=== PATIENT | female | born 1985 | race Caucasian/White ===

== ENCOUNTER 2017-09-02 09:03 | Emergency (ER) | payer OTHER | END 2017-09-02 09:27 | disposition home or self-care (01) | LOC: SCSER 09:03 | DX: J06.9 Acute upper respiratory infection, unspecified (principal); F17.210 Nicotine dependence, cigarettes, uncomplicated | CPT/HCPCS: 99283 ==

== ENCOUNTER 2018-07-23 11:46 | Emergency (ER) | payer OTHER | END 2018-07-23 16:52 | disposition home or self-care (01) | LOC: SCSER 11:46 | DX: Z53.21 Procedure and treatment not carried out due to patient leaving prior to being seen by health care provider (principal) ==

== ENCOUNTER 2018-07-23 15:44 | Emergency (ER) | payer OTHER | END 2018-07-23 16:49 | disposition home or self-care (01) | LOC: SCSER 15:44 | DX: Z02.89 Encounter for other administrative examinations (principal); F17.210 Nicotine dependence, cigarettes, uncomplicated | CPT/HCPCS: 99282 ==

== ENCOUNTER 2018-12-23 13:22 | Emergency (ER) | payer OTHER | END 2018-12-23 15:55 | disposition home or self-care (01) | LOC: SCSER 13:22 | DX: J10.1 Influenza due to other identified influenza virus with other respiratory manifestations (principal); F17.210 Nicotine dependence, cigarettes, uncomplicated | CPT/HCPCS: 87804; 99283 ==

== ENCOUNTER 2019-02-28 16:43 | Emergency (ER) | payer OTHER ==
[2019-02-28] MEDS ORDERED: Adacel (T-DAP) 0.5 ML SYRINGE ONE ×2 (17:10→17:15)
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
== END 2019-02-28 18:03 | disposition home or self-care (01) ==
LOC: ERS 16:43 → EEVIPCON 16:43 → ERS 18:03
DX: S16.1XXA Strain of muscle, fascia and tendon at neck level, initial encounter (principal); S00.03XA Contusion of scalp, initial encounter; F17.210 Nicotine dependence, cigarettes, uncomplicated; Y04.0XXA Assault by unarmed brawl or fight, initial encounter
CPT/HCPCS: 70450; 72125; 90715

== ENCOUNTER 2019-07-13 13:49 | Emergency (ER) | payer OTHER ==
[2019-07-13] MEDS ORDERED: Fluorescein Opthalmic Strip ONE (15:06)
== END 2019-07-13 15:35 | disposition home or self-care (01) ==
LOC: SCSER 13:49
DX: H10.9 Unspecified conjunctivitis (principal); F17.210 Nicotine dependence, cigarettes, uncomplicated
CPT/HCPCS: 99283

== ENCOUNTER 2021-09-26 21:34 | Emergency (ER) | payer OTHER ==
[2021-09-26] MEDS ORDERED: Ondansetron PF 4 MG/2 ML Vial ONE (21:50)
[2021-09-26] MEDS ORDERED: Haloperidol Lactate 5 MG/ML VIAL ONE (22:08)
[2021-09-26 22:09] LABS: #Lymphocytes 0.7 thou/uL (1.20-3.40); #Monocytes 0.4 thou/uL (0.11-0.59); #Neutrophils 12.9 thou/uL (1.40-6.50); %Basophils 0.1 % (0.0-1.0); %Eosinophils 0.1 % (0.0-10.0); %Lymphocytes 4.6 % (21.0-51.0); %Neutrophils 92.2 % (42.0-75.0); Mean Corpuscular HGB CONC 34.4 g/dL (32.0-36.0); Mean Corpuscular Hemoglobin 33.3 pg (27.0-31.0); Mean Corpuscular Volume 96.7 fL (78.0-98.0); Mean Platelet Volume 7.9 fL (7.4-10.4); Platelet Count 224 thou/uL (130-400); RBC Distribution Width 12.2 % (11.5-14.5)
[2021-09-26 22:17] LABS: BHCG - Serum Negative (NEGATIVE); Pregs Control Background? CLEAR/WHITE (CLR/WHITE); Pregs Control Bar Appear? YES (CONTROL BAR)
[2021-09-26 22:30] LABS: ALT (SGPT) 14 U/L (8-55); AST (SGOT) 19 U/L (5-34); Albumin 4.6 g/dL (3.5-5.0); Alkaline Phosphatase 51 U/L (40-110); Anion Gap 19 mmol/L (10-20); BUN (Urea Nitrogen) 14 mg/dL (7.0-18.7); Bilirubin, Total 0.9 mg/dL (0.2-1.2); Calc. Creatinine Clearance 0 mL/min (70-130); Calcium 9.8 mg/dL (7.8-10.44); Carbon Dioxide 23 mmol/L (22-29); Chloride 100 mmol/L (98-107); Globulin 3.2 g/dL (2.4-3.5); Glucose 156 mg/dL (70-105); Lipase 12 U/L (8-78); Potassium 3.7 mmol/L (3.5-5.1); Protein, Total 7.8 g/dL (6.0-8.3); Sodium 138 mmol/L (136-145)
== END 2021-09-26 23:15 | disposition home or self-care (01) ==
LOC: ERS 21:34
DX: R11.15 Cyclical vomiting syndrome unrelated to migraine (principal); F17.210 Nicotine dependence, cigarettes, uncomplicated; Z79.899 Other long term (current) drug therapy
CPT/HCPCS: 80053; 83690; 84703; 85025; 96374; 96375; J1630; J2405

== ENCOUNTER 2023-05-08 11:49 | Inpatient (IN) | payer OTHER ==
[2023-05-08] MEDS ORDERED: Morphine 4 MG/ML VIAL ONE (12:02)
[2023-05-08 12:19] LABS: #Basophils 0.1 thou/uL (0.0-0.2); #Eosinphils 0.2 thou/uL (0.0-0.7); #Monocytes 0.5 thou/uL (0.11-0.59); #Neutrophils 5.3 thou/uL (1.40-6.50); %Basophils 0.9 % (0.0-1.0); %Eosinophils 2.2 % (0.0-10.0); %Lymphocytes 30.8 % (21.0-51.0); %Monocytes 5.8 % (0.0-10.0); Hemoglobin 14.3 g/dL (12.0-16.0); Mean Corpuscular HGB CONC 34.6 g/dL (32.0-36.0); Mean Corpuscular Hemoglobin 32.4 pg (27.0-31.0); Mean Corpuscular Volume 93.4 fl (78.0-98.0); Mean Platelet Volume 10.3 fL (7.4-10.4); Platelet Count 238 10x3/uL (130-400); RBC Distribution Width 12.6 % (11.5-14.5); Red Blood Cell (RBC) Count 4.42 mill/uL (4.20-5.40); White Blood Cell (WBC) Count 8.9 10x3/uL (4.8-10.8)
[2023-05-08 12:36] LABS: BHCG - Serum Negative (NEGATIVE); Pregs Control Background? CLEAR/WHITE (CLR/WHITE); Pregs Control Bar Appear? YES (CONTROL BAR)
[2023-05-08 12:40] LABS: ALT (SGPT) 7 U/L (8-55); AST (SGOT) 14 U/L (5-34); Albumin 4.1 g/dL (3.5-5.0); Alkaline Phosphatase 48 U/L (40-110); Anion Gap 12 mmol/L (10-20); BUN (Urea Nitrogen) 7 mg/dL (7.0-18.7); Bilirubin, Total 0.4 mg/dL (0.2-1.2); Calc. Creatinine Clearance 0 mL/min (70-130); Carbon Dioxide 25 mmol/L (22-29); Chloride 107 mmol/L (98-107); Estimated GFR 99; Globulin 2.4 g/dL (2.4-3.5); Glucose 101 mg/dL (70-105); Lipase 22 U/L (8-78); Potassium 3.8 mmol/L (3.5-5.1); Protein, Total 6.5 g/dL (6.0-8.3); Sodium 140 mmol/L (136-145)
[2023-05-08] MEDS ORDERED: CEFAZOLIN 2 GM VIAL ONE (13:09)
[2023-05-08] MEDS ORDERED: Ondansetron PF 4 MG/2 ML Vial ONE (13:20)
[2023-05-08] MEDS ORDERED: Ketorolac Tromethamine 30 MG/ML VIAL ONE (13:38)
[2023-05-08] MEDS ORDERED: Glucagon 1 MG/ML KIT IM PRN (15:31)
[2023-05-08] MEDS ORDERED: Dextrose 50% Abboject 50 ML SYRINGE SLOW IVP PRN (15:31)
[2023-05-08] MEDS ORDERED: Morphine 2 MG/ML VIAL SLOW IVP PRN (15:31)
[2023-05-08] MEDS ORDERED: Morphine 4 MG/ML VIAL SLOW IVP PRN (15:31)
[2023-05-08] MEDS ORDERED: TETANUS, DIPHTHERIA TOX,ADULT (TDVAX) 0.5 ML VIAL IM ONE (15:31)
[2023-05-08] MEDS ORDERED: Ondansetron ODT 4 MG TAB PO PRN (15:31)
[2023-05-08] MEDS ORDERED: Dextrose 5% in Water 1,000 ML IV PRN (15:31)
[2023-05-08] MEDS ORDERED: Ipratropium/Albuterol 3 ML NEB NEB PRN (15:31)
[2023-05-08] MEDS ORDERED: Ondansetron PF 4 MG/2 ML Vial IVP PRN (15:31)
[2023-05-08] MEDS ORDERED: Promethazine HCl 25 MG/ML VIAL IM PRN (15:31)
[2023-05-08] MEDS ORDERED: traMADol HCl 50 MG TAB PO PRN (15:34)
[2023-05-08 16:32] VITALS: BMI 19.8
[2023-05-08] MEDS: Ketorolac Tromethamine 30 MG/ML VIAL IVP SCH (17:59)
[2023-05-08] MEDS ORDERED: Nicotine 21 MG PATCH TD SCH (18:00)
[2023-05-08] MEDS: Acetaminophen 500 MG TAB PO SCH ×2 (18:04→22:09)
[2023-05-08] MEDS: traMADol HCl 50 MG TAB PO SCH ×2 (18:05→22:10)
[2023-05-08] MEDS ORDERED: TETANUS AND DIPHTHERIA TOX/PF 0.5 ML DISP.SYRIN IM SCH (18:30)
[2023-05-08] MEDS: Famotidine 20 MG TAB PO SCH (22:08)
[2023-05-08] MEDS: CEFAZOLIN 2 GM in Sodium Chloride 0.9% 100 ML IVPB SCH (22:10)
[2023-05-08] MEDS: Cyclobenzaprine 10 MG TAB PO PRN (22:11)
[2023-05-08] MEDS ORDERED: Sodium Chloride 0.9% 1,000 ML IV SCH (23:55)
[2023-05-09] MEDS: Ketorolac Tromethamine 30 MG/ML VIAL IVP SCH ×5 (00:27→23:06)
[2023-05-09 05:30] LABS: #Basophils 0.1 thou/uL (0.0-0.2); #Eosinphils 0.1 thou/uL (0.0-0.7); #Monocytes 0.6 thou/uL (0.11-0.59); #Neutrophils 3.8 thou/uL (1.40-6.50); %Basophils 0.7 % (0.0-1.0); %Eosinophils 1.3 % (0.0-10.0); %Lymphocytes 32.1 % (21.0-51.0); %Monocytes 8.8 % (0.0-10.0); %Neutrophils 56.8 % (42.0-75.0); Hemoglobin 11.5 g/dL (12.0-16.0); Mean Corpuscular HGB CONC 34.7 g/dL (32.0-36.0); Mean Corpuscular Volume 95.1 fl (78.0-98.0); Mean Platelet Volume 10.4 fL (7.4-10.4); Platelet Count 173 10x3/uL (130-400); RBC Distribution Width 12.8 % (11.5-14.5); Red Blood Cell (RBC) Count 3.48 mill/uL (4.20-5.40); White Blood Cell (WBC) Count 6.7 10x3/uL (4.8-10.8)
[2023-05-09] MEDS: traMADol HCl 50 MG TAB PO SCH ×4 (05:43→21:43)
[2023-05-09] MEDS: Acetaminophen 500 MG TAB PO SCH ×4 (05:43→21:43)
[2023-05-09] MEDS: CEFAZOLIN 2 GM in Sodium Chloride 0.9% 100 ML IVPB SCH ×3 (05:45→20:20)
[2023-05-09 05:56] LABS: BUN (Urea Nitrogen) 8 mg/dL (7.0-18.7); Calc. Creatinine Clearance 84 mL/min (70-130); Calcium 8.1 mg/dL (7.8-10.44); Carbon Dioxide 24 mmol/L (22-29); Estimated GFR 115; Glucose 93 mg/dL (70-105)
[2023-05-09 06:05] LABS: Anion Gap 12 mmol/L (10-20); Chloride 108 mmol/L (98-107); Potassium 3.8 mmol/L (3.5-5.1); Sodium 140 mmol/L (136-145)
[2023-05-09] MEDS ORDERED: Scopolamine 1.5 mg/72 hour Patch TD SCH (06:45)
[2023-05-09] MEDS: Nicotine 21 MG PATCH TD SCH (08:47)
[2023-05-09] MEDS: Famotidine 20 MG TAB PO SCH ×2 (09:14→20:20)
[2023-05-09] MEDS ORDERED: Rocuronium Bromide 10 MG/ML (10ML VIAL) ONE (14:30)
[2023-05-09] MEDS ORDERED: PROPOFOL 200 MG/20 ML VIAL ONE (14:30)
[2023-05-09] MEDS ORDERED: Glycopyrrolate 0.2 MG/ML 5 ML SYRINGE ONE (14:30)
[2023-05-09] MEDS ORDERED: NEOSTIGMINE 3 MG/3 ML SYR 3 MG/3 ML SYRINGE ONE (14:30)
[2023-05-09] MEDS ORDERED: Dexamethasone 20 MG/5 ML VIAL ONE (14:30)
[2023-05-09] MEDS ORDERED: Ondansetron PF 4 MG/2 ML Vial ONE ×4 (14:30→17:23)
[2023-05-09] MEDS ORDERED: Lidocaine 1% PF 5 ML VIAL ONE (14:30)
[2023-05-09] MEDS ORDERED: Ketorolac Tromethamine 30 MG/ML VIAL IVP PRN ×2 (16:45→18:15)
[2023-05-09] MEDS ORDERED: Promethazine HCl 25 MG/ML VIAL IM PRN ×2 (16:45→18:15)
[2023-05-09] MEDS ORDERED: Meperidine HCl/PF 25 MG/ML VIAL SLOW IVP PRN (16:45)
[2023-05-09] MEDS ORDERED: Ondansetron HCl/PF 4 MG/2 ML Vial IVP PRN (16:45)
[2023-05-09] MEDS ORDERED: HYDROmorphone 2 MG/ML VIAL SLOW IVP PRN (16:45)
[2023-05-09] MEDS ORDERED: Morphine Sulfate 2 MG/ML SYRINGE SLOW IVP PRN (16:45)
[2023-05-09] MEDS ORDERED: Bupivacaine HCl 0.5%/Epinephrine 1:200,000/PF 30 ml Vial ONE (17:00)
[2023-05-09] MEDS ORDERED: Ropivacaine 2% HCl/PF (20 MG/10 ML VIAL) ONE (17:00)
[2023-05-09] MEDS ORDERED: Zolpidem Tartrate 5 MG TAB PO PRN (18:15)
[2023-05-09] MEDS ORDERED: Ropivacaine 0.2% 550 ML 550 ML NERVE BLCK SCH (18:15)
[2023-05-09] MEDS ORDERED: Ondansetron PF 4 MG/2 ML Vial IVP PRN (18:15)
[2023-05-09] MEDS: Cyclobenzaprine 10 MG TAB PO PRN (20:20)
[2023-05-10] MEDS: CEFAZOLIN 2 GM in Sodium Chloride 0.9% 100 ML IVPB SCH ×2 (01:22→09:37)
[2023-05-10] MEDS: Acetaminophen 500 MG TAB PO SCH ×3 (04:26→17:01)
[2023-05-10] MEDS: traMADol HCl 50 MG TAB PO SCH ×3 (04:26→17:00)
[2023-05-10] MEDS: Ketorolac Tromethamine 30 MG/ML VIAL IVP SCH ×2 (05:16→13:20)
[2023-05-10 06:47] LABS: #Monocytes 0.5 thou/uL (0.11-0.59); #Neutrophils 7.3 thou/uL (1.40-6.50); %Basophils 0.1 % (0.0-1.0); %Lymphocytes 13.5 % (21.0-51.0); %Monocytes 5.5 % (0.0-10.0); %Neutrophils 80.7 % (42.0-75.0); Hemoglobin 10.1 g/dL (12.0-16.0); Mean Corpuscular Hemoglobin 32.3 pg (27.0-31.0); Mean Corpuscular Volume 94.9 fl (78.0-98.0); Mean Platelet Volume 10.9 fL (7.4-10.4); Platelet Count 161 10x3/uL (130-400); RBC Distribution Width 12.8 % (11.5-14.5); Red Blood Cell (RBC) Count 3.13 mill/uL (4.20-5.40)
[2023-05-10 07:24] LABS: Anion Gap 11 mmol/L (10-20); BUN (Urea Nitrogen) 7 mg/dL (7.0-18.7); Carbon Dioxide 23 mmol/L (22-29); Chloride 106 mmol/L (98-107); Potassium 3.6 mmol/L (3.5-5.1); Sodium 136 mmol/L (136-145)
[2023-05-10 07:25] LABS: Bilirubin, Total 0.4 mg/dL (0.2-1.2); Calc. Creatinine Clearance 90 mL/min (70-130); Calcium 7.9 mg/dL (7.8-10.44); Estimated GFR 117; Glucose 91 mg/dL (70-105); Protein, Total 5.3 g/dL (6.0-8.3)
[2023-05-10 07:26] LABS: ALT (SGPT) Less than 7 U/L (8-55); AST (SGOT) 11 U/L (5-34); Albumin 3.3 g/dL (3.5-5.0); Alkaline Phosphatase 39 U/L (40-110)
[2023-05-10 09:12] VITALS: BP 106/68; TEMP 98
[2023-05-10] MEDS: Famotidine 20 MG TAB PO SCH (09:39)
[2023-05-10] MEDS: Nicotine 21 MG PATCH TD SCH (09:40)
[2023-05-10] MEDS ORDERED: Ibuprofen 200 MG TAB PO PRN (15:03)
== END 2023-05-10 18:45 | disposition home or self-care (01) | DRG 493 ==
LOC: ERS 11:49 → SJJU 14:54
PROVIDERS: ADMIT Surgery; ATTEND Surgery
PROC: 0QSG04Z Reposition Right Tibia with Internal Fixation Device, Open Approach (ICD-10-PCS; principal; 2023-05-09)
PROC: 0QSJ04Z Reposition Right Fibula with Internal Fixation Device, Open Approach (ICD-10-PCS; 2023-05-09)
PROC: 0QSF04Z Reposition Left Patella with Internal Fixation Device, Open Approach (ICD-10-PCS; 2023-05-09)
PROC: 3E033XZ Introduction of Vasopressor into Peripheral Vein, Percutaneous Approach (ICD-10-PCS; 2023-05-09)
DX: S82.841A Displaced bimalleolar fracture of right lower leg, initial encounter for closed fracture (principal); S82.002A Unspecified fracture of left patella, initial encounter for closed fracture; S92.511A Displaced fracture of proximal phalanx of right lesser toe(s), initial encounter for closed fracture; F17.210 Nicotine dependence, cigarettes, uncomplicated; F12.90 Cannabis use, unspecified, uncomplicated; G89.11 Acute pain due to trauma; V49.40XA Driver injured in collision with unspecified motor vehicles in traffic accident, initial encounter
CPT/HCPCS: 28475; 36415; 71045; 72170; 80048; 80053; 83690; 84484; 84703; 85025; 90714; 96374; 96375; C1713; C1776; G0390; J1100; J1650; J1885; J2270; J2272; J2405; J2550; J2704; J2795; J3490; J7050